=== PATIENT | female | born 1955 | race African-American/Black ===

== ENCOUNTER 2020-08-09 03:58 | Inpatient (IN) | payer OTHER ==
[~2020-08-09] VITALS: Ht 160 cm; Wt 61.2 kg
[2020-08-09] VITALS (25 sets, daily range): BP systolic 112–150; BP diastolic 57–68
--- NOTE | ~2020-08-09 | HC ---
[facility] [place] [address] CONSULTATION Name: MAYA BUNDY Room #: 170-12 ADM IN M.R.#: [id number] Admission: 08/09/20 Attend Phys: Cralos Cleary MD Discharge: Date of : 51 Report #: [id number] THIS REPORT FOR: cc: [facility] - Clinic physician unknown [facility] - Clinic physician unknown Andrey Thao MD ~ DATE OF SERVICE: 08/09/2020 RENAL CONSULTATION REASON FOR CONSULTATION: End-stage renal disease. REASON FOR PRESENTATION: Found down by her family members. HISTORY OF PRESENT ILLNESS: This is obtained from the medical chart. The patient is currently intubated and not able to provide me with any details. She is in end-stage renal disease, maintained on hemodialysis every Friday, Friday and Friday. I am not able to assist when the last time the patient received dialysis. She recently received COVID-19 vaccine few days ago. She started to get sick and ill on the 07/27/2020. Family thought that this was related to her vaccine. The patient has been very lethargic and sleepy over the last couple of days. 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 She has minimal communication, unresponsiveness in the last few days. She has reported to her family that she had some generalized body aches and pains. At 3:00 this morning, the family went by to check on her. They found her down. She was noticed to be having weakness of the left side. She was nonverbal. She was hypoglycemic. She received appropriate treatment for her hypoglycemia without improvement in her mental status and was brought to the Emergency Room for further management. She required intubation due to significant fluid overload. She was admitted to the Intensive Care Unit. I was consulted to manage her end-stage renal disease. PAST MEDICAL HISTORY: 1. End-stage renal disease, maintained on hemodialysis every Friday, Friday and Friday. 2. Hypertension. The cause of her end-stage renal disease is unknown. The patient dialyzes with [employer], [facility]. REPORTED MEDICATIONS: 1. Velphoro. 2. Nifedipine. 3. Sensipar. 4. Carvedilol. [facility] [address] [place] [address] CONSULTATION Name: MAYA BUNDY Room #: 170-[facility] IN ..#: [id number] Admission: 08/09/20 Attend Phys: Carlos Cleary MD Discharge: Date of : 51 Report #: [id number] 5. Hydralazine. ALLERGIES: 1. LISTED TO CONTRAST DYE. THIS IS PER THE FAMILY. 2. PENICILLIN. SOCIAL HISTORY: Unobtainable given the patient's current mental status. REVIEW OF SYSTEMS: Unobtainable given the patient's current mental status. PAST SURGICAL HISTORY: Unobtainable given the patient's current mental status. FAMILY HISTORY: Unobtainable given the patient's current mental status. PHYSICAL EXAMINATION: GENERAL: The patient is currently intubated. VITAL SIGNS: Blood pressure is 169/73, pulse rate is 93, respiratory rate is 18. HEAD AND NECK: No evidence of jugular venous distention. ET tube in place. CHEST: Bilateral crackles. CARDIOVASCULAR: No rub detected. ABDOMEN: Soft, nontender. EXTREMITIES: Lower extremities: No edema. Upper extremities: Right-sided brachiocephalic AV fistula with good bruit and thrill. LABORATORY VALUES: Hemoglobin is 10.9, platelet is 46,000. Sodium is 133, potassium is 5.9, chloride is 97, carbon dioxide is 18, anion gap is 18, BUN is 121, creatinine is 13.5. COVID-19 is pending. DIAGNOSTIC DATA: Chest x-ray consistent with pulmonary edema, mild. ASSESSMENT, IMPRESSION AND PLAN: 1. Acute respiratory failure. 2. Acute hyperkalemia. 3. End-stage renal disease, maintained on hemodialysis. 4. Anion gap acidosis. 5. Thrombocytopenia. 6. Emergent dialysis was arranged for the patient. This should rectify her acidosis and her hyperkalemia. The patient is currently admitted to the ICU for further evaluation and management of her ongoing medical issues. Investigation for the deterioration of the patient's overall condition had been started. I am not really sure about [facility] [address] [place] [address] CONSULTATION Name: MAYA BUNDY Room #: 170-12 ADM IN ..#: [id number] Admission: 08/09/20 Attend Phys: Carlos Cleary MD Discharge: Date of : 51 Report #: [id number] the source for her thrombocytopenia. Neurology is now following. We will continue to follow during her hospital stay. By: [id number] Andrey Thao MD /nt
[2020-08-09] MEDS ORDERED: VELPHORO500 MG PO (04:07)
[2020-08-09] MEDS ORDERED: AFEDITAB CR60 MG PO (04:27)
[2020-08-09] MEDS ORDERED: ONDANSETRON HCL4 M2 PO (04:27)
[2020-08-09] MEDS ORDERED: RENAPLEX-D TAB1 EACH PO (04:27)
[2020-08-09] MEDS ORDERED: CINACALCET HCL90 MG PO (04:28)
[2020-08-09] MEDS ORDERED: VOLTAREN GEL 1100 GM TOP (04:29)
[2020-08-09] MEDS ORDERED: ETHYL CHLORI103.5 ML TOP (04:29)
[2020-08-09] MEDS ORDERED: CARVEDILOL25 MG PO (04:30)
[2020-08-09] MEDS ORDERED: HYDRALAZINE HC100 MG PO (04:31)
[2020-08-09] MEDS ORDERED: RENVELA0.8 GM PO (04:31)
[2020-08-09 04:39] LABS: ANION GAP 18 mmol/L (7-16); BUN 121 mg/dL (7-18); CALCIUM 9.3 mg/dL (8.5-10.1); CHLORIDE 97 mmol/L (98-107); CO2 18 mmol/L (21-32); CREATININE 13.5 mg/dL (0.6-1.0); GLUCOSE 145 mg/dL (74-106); POTASSIUM 5.9 mmol/L (3.5-5.1); SODIUM 133 mmol/L (136-145)
[2020-08-09 04:42] LABS: INR 1.3; PROTIME 13.1 Seconds (9.3-11.4)
[2020-08-09 04:48] LABS: ALBUMIN 2.6 g/dL (3.4-5.0); SGOT 37 U/L (15-37); SGPT 51 U/L (30-65); TOTAL BILIRUBIN 1.1 mg/dL (0.2-1.0); TOTAL PROTEIN 6.5 g/dL (6.4-8.2); TROPONIN-I <0.06 ng/mL (<0.06)
[2020-08-09 04:57] LABS: HEMOGLOBIN 10.9 gm/dL (12.0-15.0); MCH 32.1 pg (26.0-34.0); MCHC 32.9 g/dL (28.0-37.0); MCV 97.7 fL (80.0-100.0); PLATELET COUNT 46 thou/uL (150-400); RBC 3.38 mil/uL (4.20-5.00); RDW 16.9 % (10.5-14.5)
[2020-08-09 05:43] LABS: BE(vivo) -8.5 mmol/L (-2 to +3); HCO3 16.3 mmol/L (22.0-26.0); PCO2 31.5 mmHg (35.0-45.0); PO2 182.6 mmHg (80.0-100.0); pH 7.332 (7.360-7.450); sO2 99.2 % (92.0-98.0)
[2020-08-09 06:34] LABS: ABSOLUTE NEUTROPHILS 8.1 thou/uL (1.4-8.2); PLATELET ESTIMATE MARKEDLY DECREASED
--- NOTE | 2020-08-09 07:21 | EKG ---
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[place]: ERIN : 1955 Requested By: Gloria Olmstead Order Number: [id number] MD: Ervin Delgado Measurements Intervals [place] Rate: 89 P: 70 SC: 233 QRS: -35 QRSD: 115 T: 87 QT: 371 QTc: 452 Interpretive Statements Sinus rhythm Prolonged SC interval LVH with secondary repolarization abnormality Anterior infarct, old No previous ECG available for comparison Electronically Signed On 08-09-2020 7:21:34 [employer]ELOPER by Ervin Delgado [email or web address] <ELECTRONICALLY SIGNED> By: Ervin Delgado MD, [facility] 08/09/20 0721 0431 0431 Ervin Delgado MD, FACC /EPI
[2020-08-09 10:50] LABS: FOLIC ACID 52.7 ng/mL (8.6-58.9)
--- NOTE | 2020-08-09 14:53 | HC ---
[facility] [place] [address] CONSULTATION Name: MAYA BUNDY Room #: 247-P ADM IN M.R.#: [id number] Admission: 08/09/20 Attend Phys: Carlos Cleary MD Discharge: Date of : 51 Report #: [id number] THIS REPORT FOR: cc: [facility] - Clinic physician unknown [facility] - Clinic physician unknown Devin Martinez MD ~ DATE OF SERVICE: 08/09/2020 This is a 65-year-old dialysis patient who was seen by me in the Emergency Room for the possibility of a stroke. Because of the patient's condition and urgency of the situation, a small note will be dictated now and I will dictate an addendum later. This patient is on dialysis. She got a vaccine, but the family tells me on 07/27/2020, she started becoming sick in last few days, they attributed that to the vaccine, but it is not certain. She has been mostly sleeping from the last 2-3 days. She rarely wakes up and she is not that responsive. She is having generalized aches and pains. At 3:00 a.m., the family went by and noticed that she was not acting right and was not able to talk. Prior to that, they have seen her at 11:00 p.m. and she was okay. So the last known well was actually 11:00 p.m., but they noticed the symptom at 3:00 a.m. They also noticed weakness in the left upper extremity, but the left lower extremity was okay. She was hypoglycemic, but the blood sugar was 53. She did not improve after the correcting of the hypoglycemia, but is pretty difficult to tell because this patient also got intubated, she got on sedation. She apparently is in congestive heart failure because she missed dialysis. The review of system was carried out. She is a dialysis patient. She is having respiratory symptoms. She has generalized fatigue. Her COVID test was negative. In fact, she got a second dose of COVID vaccine on as I understand. She does not drink alcohol. She has 2 daughters and both were there and they tell me they are the only children and I talked to them in detail. My examination is pretty limited. I cannot check a sweet because she is intubated. She does not follow any commands because she is sedated. I cannot tell about the weakness because she presently does not move much, but it is very difficult to tell me whether she has asymmetrical weakness or not, but it was noticed by the Emergency Room when she came in that she was weak asymmetrically on the left side and has speech difficulty. I had talked to Emergency Room physician before and after seeing the patient and she told me that the family has refused TPA. I went back myself and I talked to them about TPA. Although it is difficult to be certain, it is my impression that although she has multiple other symptoms like hypoglycemia and systemic [facility] [address] [place] [address] CONSULTATION Name: MAYA BUNDY Room #: 247-P [facility] IN M.R.#: [id number] Admission: 08/09/20 Attend Phys: Carlos Cleary MD Discharge: Date of : 51 Report #: [id number] symptoms, she probably had a stroke, which affected the left side. It is difficult for me to tell whether it was a brainstem dysarthria or whether she has aphasia. They are pretty definite that she was right handed and aphasia will be unlikely because her left side was involved, but in her generation many left handed were also made who become right handed, it can occur, it can be in the brainstem. Clinically, it looks like the patient had a stroke because her hypoglycemia was not severe, but it is difficult to be 100%. Again, the recommendation was to proceed with TPA, but they are pretty adamant that they will not go with TPA. In these circumstances, she IS ALLERGIC TO CONTRAST. I think the risk is worth taking. I talked to the Emergency Room doctor. She has already pretreated the patient and she said they all set to take the patient for CT angio and perfusion. After CT angio and perfusion is done, the family will be presented with the same information. I think the time of onset should be considered at 11:00 because that is time she was seen well, but if she does have a penumbra or she has any clot sitting there then the family will be willing to reconsider their decision for either thrombectomy or any other treatment. It is not fully accepted if penumbra is there, TPA can be still given up to 9 hours but that is not fully accepted study yet, but I will be willing to give her if the family allows us after her CT angiogram and perfusion come, but presently they are pretty adamant that they want TPA, but they do want to proceed with CT angio and perfusion and they do understand that they take some time, especially at this moment than remote Radiology has to read that. She also had multiple other issues going on with her and that need to be addressed and already being addressed. They do understand that she did not have dialysis and dye can cause problem and we are rapidly treating her and she can still get the allergic reaction, but in my view, those risks are worth taking because we need to address the question of stroke in this patient. All of it was discussed with the patient and the family and I discussed the situation with the Emergency Room physician. Thank you very much for this referral. <ELECTRONICALLY SIGNED> By: Devin Martinez MD 08/09/20 1453 0611 0642 Devin Martinez MD /nt
[2020-08-09 16:01] LABS: BE(vivo) -0.2 mmol/L (-2 to +3); PCO2 32.6 mmHg (35.0-45.0); pH 7.466 (7.360-7.450); sO2 97.7 % (92.0-98.0)
--- NOTE | 2020-08-09 17:05 | NUR ---
PT'S DAUGHTER JC HERE AND STATES PT HAS AN ALLERGY TO VANCOMYCIN. ALLERGY IS NOT ON PT'S CHART INFORMATION. VANCOMYCIN STOPPED AND MESSAGE LEFT FOR DR. CARMONA. PHARMACY NOTIFIED AT THIS TIME WELL.
--- NOTE | 2020-08-09 17:16 | NUR ---
PT ARRIVED TO UNIT AT 1420. PT UNRESPONSIVE AT THIS TIME. PT ON VENTILATOR. PT'S DAUGHTER ARRIVED AND ANSWERED ADMISSION QUESTIONS FOR RN. DAUGHTER STATES PT HAS 2 DAUGHTERS. DAUGHTER 1 IS JC CALDERON [phone] AND SECOND DAUGHTER IS MARIUSZ SCHULTZ [phone]. PT LIVES WITH DAUGHTER MARIUSZ.
[2020-08-10] VITALS (31 sets, daily range): BP systolic 81–143; BP diastolic 18–71
--- NOTE | 2020-08-10 00:51 | HC ---
[facility] [place] [address] CONSULTATION Name: MAYA BUNDY Room #: 247-P ADM IN M.R.#: [id number] Admission: 08/09/20 Attend Phys: Carlos Cleary MD Discharge: Date of : 51 Report #: [id number] THIS REPORT FOR: cc: [facility] - Clinic physician unknown [facility] - Clinic physician unknown Kyaw Hawkins MD ~ DATE OF SERVICE: 08/09/2020 REASON FOR CONSULTATION: I was asked to evaluate concerning encephalopathy, sepsis and respiratory failure. HISTORY OF PRESENT ILLNESS: The patient is a 65-year-old with underlying history of hypertension and end-stage renal disease, who undergoes 3 times a week dialysis. She was found at home unresponsive and required intubation and mechanical ventilation and ICU evaluation. She has been weak and fatigued for the last 2-3 weeks. She had received her COVID vaccination series completing on 07/19/2020. She has had intermittent cough. No hemoptysis or chest pain reported. There has been no nausea, vomiting or diarrhea. She did miss her dialysis this week. Following presentation to the Emergency Room, she is now intubated on 25% FiO2. She has been oxygenating well. She has had no seizure activity or posturing. She has been seen by Neurology with a CT scan of the head negative for acute infarct. There have been minimal tracheal secretions. She has had no rash. There has been no nausea, vomiting or diarrhea reported. REVIEW OF SYSTEMS: A 14-point review of system was negative other than what has been described above. ALLERGIES: CONTRAST DYE, CODEINE, PENICILLIN, AND VANCOMYCIN. MEDICATIONS: As noted on her MAR, now receiving Zyvox and meropenem. Other medications included nifedipine, Zofran, multivitamins, Voltaren gel, carvedilol, Renvela, and hydralazine. PAST MEDICAL HISTORY: End-stage renal disease, right upper extremity AV fistula, hypertension. She is anuric. FAMILY HISTORY: Negative for tuberculosis. SOCIAL HISTORY: Nonsmoker, no significant alcohol intake. PHYSICAL EXAMINATION: VITAL SIGNS: Afebrile and hemodynamically stable. GENERAL: She was unresponsive to verbal stimulus. She did withdraw to pain. HEENT: Eyes will conjugate. Pupils were reactive to light. SKIN: Without rash or decubitus. No palpable adenopathy. She was of normal [address] [address] CONSULTATION Name: MAYA BUNDY Room #: 247-P [facility] IN M.R.#: [id number] Admission: 08/09/20 Attend Phys: Carlos Cleary MD Discharge: Date of : 51 Report #: [id number] weight. Mouth without mucositis. She was orally intubated. NECK: Supple. LUNGS: Clear to auscultation. HEART: Regular, without murmur, gallop or rub. ABDOMEN: Soft and nontender. No hepatosplenomegaly or mass appreciated. No CVA tenderness noted. GENITOURINARY: External genitalia without lesion. RECTAL EXAMINATION: Not performed. EXTREMITIES: Without clubbing, cyanosis or edema. Right upper extremity AV fistula, nontender with no swelling or erythema. LABORATORY STUDIES: Reviewed. MICROBIOLOGY: Reviewed. IMAGING: Chest x-ray reviewed. IMPRESSION: Acute encephalopathy, unclear as to the etiology at this point. Neurology suspects global ischemia. She has respiratory failure with a right upper lobe pneumonia, likely aspiration, thrombocytopenia indeterminate, but I am suspecting DIC, anemia due to chronic disease, end-stage renal disease. RECOMMENDATIONS: We will continue broad antibiotic coverage, pending culture results. Await MRI scan. Empiric coverage for bacterial and viral encephalopathy. If MRI scan nondiagnostic, we would consider lumbar puncture as next step in her evaluation. Continue to treat for aspiration, healthcare-associated pneumonia. Discussed with nursing staff at the bedside. <ELECTRONICALLY SIGNED> By: Kyaw Hawkins MD 08/10/20 0051 0032 0048 Kyaw Hawkins MD /nt
[2020-08-10 05:49] LABS: HEMATOCRIT 32.6 % (37.0-47.0); HEMOGLOBIN 10.7 gm/dL (12.0-15.0); MCV 96.3 fL (80.0-100.0); PLATELET COUNT 43 thou/uL (150-400)
[2020-08-10 05:51] LABS: MCH 31.7 pg (26.0-34.0); MCHC 32.9 g/dL (28.0-37.0); RBC 3.38 mil/uL (4.20-5.00); RDW 16.8 % (10.5-14.5); WBC 16.9 thou/uL (4.0-11.0)
[2020-08-10 06:02] LABS: ALBUMIN 2.3 g/dL (3.4-5.0); CALCIUM 8.7 mg/dL (8.5-10.1); MAGNESIUM 2.2 mg/dL (1.8-2.4); PHOSPHORUS 4.3 mg/dL (2.5-4.9); POTASSIUM 5.1 mmol/L (3.5-5.1)
[2020-08-10 06:18] LABS: CREATININE 7.4 mg/dL (0.6-1.0)
--- NOTE | 2020-08-10 06:51 | NUR ---
pt remaines unresponsive, started opening eyes spontaneously with repositioning last few hours, vss, 99 temps, og with green bile fluids in tubing on lis, vent settings the same as assessed earlier. plan mri this amwill con't to monitor per ppoc.
[2020-08-10 09:06] LABS: ABSOLUTE NEUTROPHILS 15.9 thou/uL (1.4-8.2); ANISOCYTOSIS 1+; MYELOCYTES 1 %
--- NOTE | 2020-08-10 10:00 | NUR ---
chart review. admit with ams, possible cva, she is on vent and mynor to go for MRi. will cont following as needed for dc needs.
--- NOTE | 2020-08-10 10:40 | NUR ---
to radiology per cart for mri with Yohannes, RT assist and tranporters.
--- NOTE | 2020-08-10 11:20 | NUR ---
returned from radiology per cart.
--- NOTE | 2020-08-10 14:30 | NUR ---
pt's daughter present to see pt and had her sister on speaker phone. updated on all cares including oxygenation on vent, neuro status, mri and abominal ultrasound completed. plan for additional iv access, then based on mri results potential plan for spinal tap. all questions answered.
--- NOTE | 2020-08-10 14:45 | NUR ---
report called to ashly Burns. called daughter to update her of pt move to CCU rm# 202 prior to her surgery to allow her(daughter) to come to visit. rn previously spoke with pt and Dr. Goldberg spoke with pt. pt verbalized understanding of surgery and consent. Since pt had dilaudid for pain, rn continued to speak with Patricia Guidry, daughter and telephone consent was obtained for surgery. pt transferred to CCU rm# 202 on monitor per ccu bed.
--- NOTE | 2020-08-10 17:13 | NUR ---
ORDER NOTED FOR MIDLINE PLACEMENT- THIS PATIENT IS NOT A CANIDATE FOR A MIDLINE WITHOUT NEPHROLOGYS APPROVAL. + BLOOD CULTURES NOTED WELL A HISTORY OF THROMBOCYTOPENIA. DISCUSSED WITH THE COMPUTER INSTALLER. 2 #20G PERIPHERAL IVS PLACED IN THR LEFT ARM FOR ACCESS. THE PATIENT HAS 3 PERIPHERAL IVS AT THIS TIME.
[2020-08-11] VITALS (77 sets, daily range): BP systolic 86–219; BP diastolic 14–167
[2020-08-11 00:06] LABS: HIV ANTIBODY Non Reactive (Non Reactive)
--- NOTE | 2020-08-11 03:58 | NUR ---
ASSUMED PT CARE AT 1900. PT WAS HYPOTENISVE WITH A MAP OF 53. PT WAS AWAKE, SPONTENEOUSLY MOVING ALL EXTREMITIES BUT DOESNT FOLLOW ANY COMMANDS. UPON ASSESSMENT SCD FOUND ON LLE WHERE BP CUFF WAS ATTACHED. THIS RN REMOVED SCD FRO BETTER BP READING. BP WASNT IMPROVING STILL, BP DROPPED TO 80/[address] JAQUEZ NOTIFIED AROUND 2124 AND ORDERS RECEIVED TO START PT ON LEVO TO KEEP MAP ABOVE 60. STANDARD CONC LEVO STARTED. LEVO WAS TITRATED UP TO 15 MCG AND BL WAS STILL 80/40. LEVO CHNAGED TO DBL CONC BY PHARM AND NOW RUNNING AT 10MCG. PT BP BEGAN TO SLOWLY TREND UP. PT IS OTHERWISE STABLE ON THE VENT WITH NO SEDATION, WILL CONTINUE TO CLOSELY MONITOR BP TITRATING LEVO PRN.
[2020-08-11 07:31] LABS: HEMATOCRIT 32.5 % (37.0-47.0); HEMOGLOBIN 10.5 gm/dL (12.0-15.0); MCHC 32.5 g/dL (28.0-37.0); MCV 95.6 fL (80.0-100.0); PLATELET COUNT 54 thou/uL (150-400); RDW 16.9 % (10.5-14.5); WBC 24.4 thou/uL (4.0-11.0)
--- NOTE | 2020-08-11 10:47 | NUR ---
If pt remains intubated >72hr, recommend start nepro at goal of 40ml/hr
[2020-08-11 12:46] LABS: ABSOLUTE NEUTROPHILS 22.7 thou/uL (1.4-8.2)
[2020-08-11 12:52] LABS: ANISOCYTOSIS 2+; OVALOCYTES FEW; POLYCHROMASIA 1+
[2020-08-11 12:58] LABS: PLATELET ESTIMATE DECREASED
--- NOTE | 2020-08-11 14:19 | 2DMMODE ---
[facility] [place] [address] 2 D/M-MODE ECHOCARDIOGRAM Name: MAYA BUNDY Room #: 247-P ADM IN M.R.#: [id number] Admission: 08/09/20 Attend Phys: Carlos Cleary MD Discharge: Date of : 51 Report #: [id number] THIS REPORT FOR: cc: [facility] - Clinic physician unknown [facility] - Clinic physician unknown Kwabena Hutchins MD ~ APPROVED REPORT Study performed: 08/11/2020 13:35:21 EXAM: Comprehensive 2D, Doppler, and color-flow Echocardiogram Patient Location: ICU Room #: [facility] Status: routine BSA: 1.64 HR: 78 bpm BP: 123/33 mmHg Rhythm: NSR Other Information Study Quality: Good Indications Dyspnea Hypertension/HDD 2D Dimensions RVDd: 36.03 mm IVSd: 13.08 (7-11mm) LVOT Diam: 20.66 (18-24mm) LVDd: 36.68 mm PWd: 13.32 (7-11mm) Ascending Ao: 32.10 (22-36mm) LVDs: 22.56 (25-40mm) Aortic Root: 31.52 mm IVC: 22.00 mm Volumes Left Atrial Volume (Systole) Single Plane 4CH: 77.87 mL Single Plane 2CH: 49.38 mL LA ESV Index: 41.00 mL/m2 Aortic Valve AoV Peak Reji.: 2.07 m/s AO Peak Gr.: 17.20 mmHg LVOT Max P.43 mmHg LVOT Max V: 1.36 m/s MAXIMO Vmax: 2.20 cm2 [facility] [address] [address] 2 D/M-MODE ECHOCARDIOGRAM Name: DOMINGO BUNDYJENLUKE Fernando Room #: 247-P [facility] [id number] Admission: 08/09/20 Attend Phys: Fernando Rogers Discharge: Date of : 51 Report #: [id number] Mitral Valve E/A Ratio: 0.8 MV Decel. Time: 349.85 ms MV E Max Reji.: 1.08 m/s MV A Reji.: 1.30 m/s MV PHT: 101.46 ms IVRT: 115.34 ms Pulmonary Valve PV Peak Reji.: 1.21 m/s PV Peak Gr.: 5.83 mmHg Pulmonary Vein P Vein S: 0.61 m/s P Vein A: 0.26 m/s P Vein D: 0.32 m/s P Vein A Dur.: 101.5 msec P Vein S/D Ratio: 1.91 Tricuspid Valve TR Peak Reji.: 2.51 m/s TR Peak Gr.: 25.25 mmHg PA Pressure: 35.00 mmHg Left Ventricle The left ventricle is normal size. Mild concentric left ventricular hypertrophy. The left ventricular systolic function is normal. The left ventricular ejection fraction is within the normal range. LVEF is 60-65%. Grade I - abnormal relaxation pattern. Right Ventricle The right ventricle is normal size. The right ventricular systolic function is normal. Atria Left atrium is dilated. The right atrium size is normal. Aortic Valve The Aortic valve is sclerotic. No aortic regurgitation is present. There is no aortic valvular stenosis. Mitral Valve Mitral valve leaflets are thickened. There is no mitral valve regurgitation noted. No evidence of mitral valve stenosis. Tricuspid Valve The tricuspid valve is normal in structure. There is trace to mild tricuspid regurgitation. Estimated PAP 35 mmHg. [facility] [place] [place] [address] 2 D/M-MODE ECHOCARDIOGRAM Name: MAYA BUNDY Room #: 247-P [facility] IN .R.#: [id number] Admission: 08/09/20 Attend Phys: Fernando Rogers Discharge: Date of : 51 Report #: [id number] Pulmonic Valve The pulmonary valve is normal in structure. Trace pulmonic regurgitation. Great Vessels The aortic root is normal in size. IVC is dilated and collapses <50% with inspiration. Pericardium There is no pericardial effusion. <Conclusion> The left ventricle is normal size. Mild concentric left ventricular hypertrophy. The left ventricular systolic function is normal. Grade I - abnormal relaxation pattern. The right ventricle is normal size. Left atrium is dilated. The Aortic valve is sclerotic. There is no mitral valve regurgitation noted. There is trace to mild tricuspid regurgitation. Estimated PAP 35 mmHg. <ELECTRONICALLY SIGNED> By: Kwabena Hutchins MD 08/11/201418 18 18 Kwabena Hutchins MD /INF
--- NOTE | 2020-08-11 14:46 | NUR ---
chart review. she remain on vent, nutritional support. no anticipated dc over the weekend. will cont following as needed for dc needs.
--- NOTE | 2020-08-11 16:09 | NUR ---
DAUGHTER JC PERKIN AT BEDSIDE AT 1445. SHE HAD MANY QUESTIONS. SHE WANTED TO TALK TO THE HOSPITALIST. CLARITA IN CASE MANAGEMENT NOTIFY DR. LEO TO CALL THE DAUGHTER. DAUGHTER QUESTIONED ABOUT EVERY DETAIL OF VENTILATOR SETTINGS. IV DRIPS, MEDICATIONS. PERIPHERAL LINES, CENTRAL LINES. THIS RN APPROPRIATELY ANSWERED ALL HER QUESTIONS.
[2020-08-12] VITALS (23 sets, daily range): BP systolic 91–169; BP diastolic 41–72
[2020-08-12 06:13] LABS: BASOPHILS 0.1 % (0.0-2.0); EOSINOPHILS 0.1 % (0.0-3.0); HEMATOCRIT 29.8 % (37.0-47.0); HEMOGLOBIN 9.7 gm/dL (12.0-15.0); LYMPHOCYTES 2.5 % (24.0-44.0); MCH 31.3 pg (26.0-34.0); MCHC 32.6 g/dL (28.0-37.0); MCV 95.9 fL (80.0-100.0); MONOCYTES 3.2 % (1.0-8.0); PLATELET COUNT 44 thou/uL (150-400); POLYS 94.1 % (36.0-66.0); RBC 3.11 mil/uL (4.20-5.00); RDW 16.5 % (10.5-14.5); WBC 14.9 thou/uL (4.0-11.0)
--- NOTE | 2020-08-12 06:27 | NUR ---
Patient continues on vent, resting comfortably with low dose propofol. Adequate oxygenation. Heart rate and rhythm stable. Blood pressure improved with cuff on upper extremity rather than lower. Levophed off at 0000. Tmax was 99.9 No BM. Anuric. Patient rested through the night without issue. Spoke with patient's daughter, Devika. Gave update on patient condition. Answered questions. Patient is progressing towards goals. See documentation on interventions for assessment details.
[2020-08-12 06:36] LABS: CALCIUM 8.9 mg/dL (8.5-10.1); POTASSIUM 4.9 mmol/L (3.5-5.1); TOTAL BILIRUBIN 0.9 mg/dL (0.2-1.0); TOTAL PROTEIN 6.3 g/dL (6.4-8.2)
[2020-08-12 06:37] LABS: CREATININE 5.4 mg/dL (0.6-1.0)
--- NOTE | 2020-08-12 09:21 | NUR ---
Assummed care of this patient from the night nurse, Lzi BEASLEY, at 0700. Propofol decreased and patient placed on CPAP trial at 0855.
[2020-08-12 11:21] LABS: BE(vivo) 0.9 mmol/L (-2 to +3); HCO3 26.2 mmol/L (22.0-26.0); PCO2 44.6 mmHg (35.0-45.0); PO2 113.8 mmHg (80.0-100.0); pH 7.387 (7.360-7.450); sO2 98.1 % (92.0-98.0)
--- NOTE | 2020-08-12 19:18 | NUR ---
PATIENT IS PROGRESSING TOWARDS OUTCOME GOALS SHE IS ON ROOM AIR WITH AN O2 SAT IN THE UPPER 90'S. STATES THAT SHE NEEDS TO GO TO DIALYSIS AT 1700 AND IS CONTINUALLY LOOKING FOR HER PHONE. REASSURANCE GIVEN AND ATTEMPT TO RE ORIENATE TO SITUATION AND PLACE.
--- NOTE | 2020-08-12 22:46 | NUR ---
This RN spoke to Devika, daughter, regarding patient status at 2200 this evening. Patient to daughter on phone as well. Answered all questions and updated on care plan.
[2020-08-13] VITALS (12 sets, daily range): BP systolic 104–165; BP diastolic 37–63
[2020-08-13 02:38] LABS: ALBUMIN 2.2 g/dL (3.4-5.0); CALCIUM 9.4 mg/dL (8.5-10.1); CREATININE 6.8 mg/dL (0.6-1.0); PHOSPHORUS 11.1 mg/dL (2.6-4.7); POTASSIUM 5.5 mmol/L (3.5-5.1)
--- NOTE | 2020-08-13 06:31 | NUR ---
This RN gave report to CCU RNCaro at 0600 this morning. Patient progressing towards goals. Remains on room air when awake. 2 L NC required when patient sleeps. Vital signs stable. Transferring care to CCU nurse.
--- NOTE | 2020-08-13 07:04 | NUR ---
PT TRANSFERED FROM RM 247 TO RM 208 AT 0645 WITH NO COMPLICATIONS. TELE MONITOR APPLIED. PATIENT RESTING IN BED WITH NO REQUESTS OR COMPLAINTS.
--- NOTE | 2020-08-14 04:19 | NUR ---
ASSUMED PT CARE AT 1900 VSS. PT DROWY BUT AROUSABLE. ORIENTED TO SELF, SITUATION, AND PLACE. PT HAD AN UNEVENTFUL NOC. PT IS STABLE, NO COMPLAINTS. WILL CONTINUE TO MONITOR PER POC
[2020-08-14 05:20] VITALS: BP 117/46
[2020-08-14 06:31] LABS: ALBUMIN 2.2 g/dL (3.4-5.0); CALCIUM 10.6 mg/dL (8.5-10.1); PHOSPHORUS 11.7 mg/dL (2.5-4.9)
[2020-08-14 06:32] LABS: CREATININE 9.1 mg/dL (0.6-1.0)
[2020-08-14 06:35] LABS: POTASSIUM 6.7 mmol/L (3.5-5.1)
--- NOTE | 2020-08-14 07:15 | HC ---
[facility] [place] [address] CONSULTATION Name: MAYA BUNDY Room #: 208-P ADM IN M.R.#: [id number] Admission: 08/09/20 Attend Phys: Carlos Cleary MD Discharge: Date of : 51 Report #: [id number] THIS REPORT FOR: cc: [facility] - Clinic physician unknown [facility] - Clinic physician unknown Eder Artis MD ~ DATE OF SERVICE: 08/11/2020 REQUESTING PHYSICIAN: ____ REASON FOR CONSULTATION: Thrombocytopenia. 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 History is significant that it sounds like she got her second dose of COVID vaccine perhaps around 07/19/2020 and then sounds like maybe around 07/27, started feeling poorly. She came to the hospital after being found down at home with mental status changes and possible stroke. On admission here, her platelets were 46,000 and 43,000 yesterday, today they have not yet been drawn. About the same time, hemoglobin 10.9 with a white count of 9, INR of 1.3, alkaline phosphatase 228. She is on chronic hemodialysis with creatinine 13.5 on admission. She has also had normal folate and B12 here. She has also been found to have a gram-negative cordelia in her blood and also perhaps aspiration pneumonia. COVID tested negative. Currently, she is in the ICU. Per the chart, it sounds to have been no prior history of thrombocytopenia. We do not have old records for comparison. She was not on any anticoagulants that we know of. Here, she is on the ventilator and is on pressors this morning. PAST MEDICAL HISTORY: Appears to be notable for the hypertension and hyperlipidemia. 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 CURRENT MEDICATIONS: At this time in the hospital include norepinephrine drip, fluconazole 100 daily, famotidine 10 at bedtime, linezolid 300 mL q. 12 hours, meropenem 1 gram q. 24 hours, insulin on a sliding scale, methylprednisolone 62.5 t.i.d., electrolyte replacement protocols, Zofran 4 mg q. 4 hours p.r.n., propofol ____ I believe it has been discontinued. Imaging has included an MRI of the head and pamunkey of [place]. Also, ultrasound of the abdomen without hepatosplenomegaly. They did not show any lymphadenopathy either. PHYSICAL EXAMINATION: GENERAL: The patient appears her stated age. She is on the ventilator. Eyes [facility] [address] [place] [address] CONSULTATION Name: MAYA BUNDY Room #: 208-P [facility] IN M.R.#: [id number] Admission: 08/09/20 Attend Phys: Carlos Cleary MD Discharge: Date of : 51 Report #: [id number] flickered when I first started examining her neck. VITAL SIGNS: Height and weight reported as 5 feet 3 inches, 160 cm, 140 pounds 5 ounces or 63.6 kilograms. Recent blood pressure 81/20 with respirations of 22, pulse 71, afebrile axillary at 97.8. She is on O2 sat 100% on the ventilator. NEUROLOGIC: Eyes flickered, cannot otherwise assess, seem to be slightly purposeful in her movement. LUNGS: Slightly coarse perhaps slightly more rhonchi in the right. HEART: Regular rate, tachy. LYMPHATICS: No enlarged lymph nodes in the supraclavicular, cervical, axillary region. ABDOMEN: Slightly obese. No definite masses. EXTREMITIES: Have some trace edema. ASSESSMENT AND PLAN: 1. Thrombocytopenia. Today CBC pending. 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 There are other questions could possibly be related to vaccine, but we do not know what her prior baseline was. They are stable. No obvious external bleeding, we will transfuse to keep above 20,000. Peripheral smear review and immature platelet fraction pending. 2. Anemia lab pending from today. Follow serial hemoglobins. Does not appear to have overt bleeding or hemolysis. 3. Mental status changes. Defer to others, unclear whether the patient has had a stroke or whether this is from sepsis or other etiology. 4. 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 Antibiotics per others. 5. Respiratory failure, question of aspiration pneumonia. Continues antibiotics, etc. 6. Renal dialysis per renal. We will follow with you. <ELECTRONICALLY SIGNED> By: Eder Artis MD 08/14/20 0715 [id number] Eder Artis MD /nt
[2020-08-14 07:26] LABS: ABSOLUTE NEUTROPHILS 7.2 thou/uL (1.4-8.2); EOSINOPHILS 0.1 % (0.0-3.0); HEMATOCRIT 29.4 % (37.0-47.0); HEMOGLOBIN 9.6 gm/dL (12.0-15.0); LYMPHOCYTES 3.3 % (24.0-44.0); MCH 31.5 pg (26.0-34.0); MCHC 32.7 g/dL (28.0-37.0); MCV 96.3 fL (80.0-100.0); MONOCYTES 3.6 % (1.0-8.0); RBC 3.05 mil/uL (4.20-5.00); RDW 15.8 % (10.5-14.5); WBC 7.8 thou/uL (4.0-11.0)
[2020-08-14 07:27] LABS: PLATELET COUNT 52 thou/uL (150-400)
[2020-08-14 08:00] VITALS: BP 131/45
[2020-08-14 11:40] VITALS: BP 144/43
--- NOTE | 2020-08-14 11:42 | NUR ---
Patient transferred to CCU from ICU. She is weaned from vent and not requiring oxygen. Therapy evals ordered and in process. [facility] consulted they are following. Patient with low endurance but just worked with therapy today. casemgt following.
--- NOTE | 2020-08-14 14:07 | NUR ---
ON-GOING ASSESSMENT: SCARLET REVIEWED CHART AND SPOKE WITH LIASON FROM [facility]. SHE REPORTS THEY ARE STILL FOLLOWING PATIENT BUT UNSURE ABOUT HER TOLERANCE FOR THERAPIES. [facility] LIASON STATES THEY WILL SEE HER IN THE AM AND GIVE AN ANSWER IF THEY CAN ACCEPT HER OR NOT. SCARLET WILL CONTINUE TO FOLLOW.
[2020-08-14 15:15] VITALS: BP 133/46
--- NOTE | 2020-08-14 19:18 | NUR ---
Assumed pt care this pm, received from CCU. Dialysis done til shift change, Refused pm medications and insulin since she did not want to eat dinner. Daughter at the bed side, POC followed with no signs or verbalizations of distress noted. endorsed to the night nurse.
[2020-08-14 19:55] VITALS: BP 143/70
[2020-08-14 20:06] LABS: SYPHILIS AB Non Reactive (Non Reactive)
[2020-08-15 05:34] LABS: ALBUMIN 2.3 g/dL (3.4-5.0); CALCIUM 10.7 mg/dL (8.5-10.1); PHOSPHORUS 7.9 mg/dL (2.5-4.9)
[2020-08-15 05:42] LABS: CREATININE 4.7 mg/dL (0.6-1.0); POTASSIUM 5.3 mmol/L (3.5-5.1)
--- NOTE | 2020-08-15 06:07 | NUR ---
Assumed pt care at 1900. A/OX3,lethargic,pt had just completed dialysis. C/o pain and inability to move legs;slight swelling on LLE. CONSUMER INSIGHT MANAGER Elizabeth notified,n.o US to LE and Tylenol given;dtr Devika updated. VSS. Pt has a central line on left subclavian triple lumen and patent. Incontinent of bowels this shift,anuric. Dark discolaration noted on buttocks. Fall precautions in place,will continue to monitor pt. Pt more awake this morning.
--- NOTE | 2020-08-15 08:41 | NUR ---
on-going assessment: cm was notified by liason from [facility] THEY CAN ACCEPT PT BUT WILL NEED A NEGATIVE COVID TEST ONCE SHE IS STABLE TO DISCHARGE PRIOR TO TAKING HER ON [facility]. CM NOTIFIED ATTENDING.
[2020-08-15 09:12] VITALS: BP 148/75
--- NOTE | 2020-08-15 12:42 | NUR ---
[facility] IS ACCEPTING OF PT. CARE TEAM INDICATED THAT PT IS MEDICALLY STABLE TO DC THERE THIS DAY AWAITING REPEAT COVID TEST RESULT. CM TO FOLLOW INDICATED WITH DC PLANNING.
[2020-08-15] MEDS ORDERED: PREDNISONE 20 M20 M1 PO (13:41)
[2020-08-15] MEDS ORDERED: AFEDITAB CR60 MG PO (13:41)
--- NOTE | 2020-08-15 15:07 | NUR ---
Assumed pt care this am, vs checked bp elevated. Pt is a dialysis pt MWF. Anuric, is continent of bowel. Was able to get up and sit on the recliner for most of the day and worked with PT. Covid negative results are back. Central line in place 3 lumen patent. Pain was verbalized d/t not getting our of bed, managed with medications partiel relief is noted. Right upper arm fistula is noted, dressing is c/d/i. Lab (Toby)called regarding indium scan, that can be done on . Delay is due to a component needed to run the test not delivered due to weather. Toby advised he will inform Dr. Hawkins as well. 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 POC followed with no signs of distress noted. Report given to the [address] [place] [address] nurse.
[2020-08-15 16:02] VITALS: BP 154/83
[2020-08-16 06:06] LABS: GLYCOHEMOGLOBIN (HGB A1C) 4.7 % (4.8-5.6)
== END 2020-08-15 16:55 | DRG 871 ==
LOC: ER 03:58 → ICU 05:53 → EROBS 05:53 → ICU 14:09 → 2N 08-13 06:57 → 4W 08-14 12:40
PROVIDERS: Emergency Medicine; Internal Medicine Hematology & Oncology; Internal Medicine Nephrology; Nurse Practitioner; Specialist; ADMIT Hospitalist; ATTEND Hospitalist
PROC: 5A1945Z Respiratory Ventilation, 24-96 Consecutive Hours (ICD-10-PCS; 2020-08-09)
PROC: 5A1D70Z Performance of Urinary Filtration, Intermittent, Less than 6 Hours Per Day (ICD-10-PCS; 2020-08-09)
PROC: 0BH17EZ Insertion of Endotracheal Airway into Trachea, Via Natural or Artificial Opening (ICD-10-PCS; 2020-08-09)
PROC: 02HV33Z Insertion of Infusion Device into Superior Vena Cava, Percutaneous Approach (ICD-10-PCS; 2020-08-11)
PROC: 5A09357 Assistance with Respiratory Ventilation, Less than 24 Consecutive Hours, Continuous Positive Airway Pressure (ICD-10-PCS; principal; 2020-08-12)
PROC: 5A0935A Assistance with Respiratory Ventilation, Less than 24 Consecutive Hours, High Flow/Velocity Cannula (ICD-10-PCS; principal; 2020-08-12)
PROC: 5A1D70Z Performance of Urinary Filtration, Intermittent, Less than 6 Hours Per Day (ICD-10-PCS; 2020-08-14)
DX: A41.51 Sepsis due to Escherichia coli [E. coli] (principal); J96.01 Acute respiratory failure with hypoxia; G92 Toxic encephalopathy; N18.6 End stage renal disease; J69.0 Pneumonitis due to inhalation of food and vomit; I13.2 Hypertensive heart and chronic kidney disease with heart failure and with stage 5 chronic kidney disease, or end stage renal disease; G81.94 Hemiplegia, unspecified affecting left nondominant side; E87.5 Hyperkalemia; D69.6 Thrombocytopenia, unspecified; D63.8 Anemia in other chronic diseases classified elsewhere; R65.20 Severe sepsis without septic shock; E04.1 Nontoxic single thyroid nodule; E11.22 Type 2 diabetes mellitus with diabetic chronic kidney disease; I50.9 Heart failure, unspecified; M19.90 Unspecified osteoarthritis, unspecified site; B96.89 Other specified bacterial agents as the cause of diseases classified elsewhere; Z20.822 Contact with and (suspected) exposure to COVID-19; Z99.2 Dependence on renal dialysis; Z79.899 Other long term (current) drug therapy; Z88.0 Allergy status to penicillin; Z91.041 Radiographic dye allergy status
CPT/HCPCS: 10047; 10078; 10081; 32100